=== PATIENT | male | born 1965 | race Caucasian/White ===

== ENCOUNTER 2023-05-04 06:14 | Day surgery (SDC) | payer OTHER ==
[2023-04-27 11:02] VITALS: BMI 22.7
[2023-05-04] MEDS ORDERED: LIDOCAINE HCL/PF 2% SDV 5ML VIAL ONE (07:07)
[2023-05-04] MEDS ORDERED: PROPOFOL 80 ML ONE (07:07)
[2023-05-04] MEDS ORDERED: MIDAZOLAM HCL 2 MG/2 ML SINGLE DOSE VIAL ONE (07:08)
[2023-05-04] MEDS ORDERED: BUPIVACAINE HCL/PF 0.5% (5MG/ML) 10 ML VIAL ONE (07:21)
[2023-05-04] MEDS ORDERED: ceFAZolin SODIUM 1 GM VIAL ONE (08:03)
[2023-05-04] MEDS ORDERED: TRANEXAMIC ACID 1000 MG/10 ML VIAL ONE (08:35)
[2023-05-04] MEDS ORDERED: PROPOFOL 20 ML ONE ×2 (10:15→10:16)
[2023-05-04] MEDS ORDERED: ONDANSETRON 4 MG/2 ML VIAL ONE (10:16)
[2023-05-04] MEDS ORDERED: KETOROLAC TROMETHAMINE 30 MG/1 ML VIAL ONE (10:16)
[2023-05-04] MEDS ORDERED: PROPOFOL 40 ML ONE (10:48)
[2023-05-04] MEDS ORDERED: ONDANSETRON 4 MG/2 ML VIAL IVPUSH PRN (12:05)
[2023-05-04] MEDS ORDERED: ACETAMINOPHEN 1000 MG/100 ML BAG IVPB ONE (12:05)
[2023-05-04] MEDS ORDERED: oxyCODONE HCL 5 MG TABLET PO PRN ×2 (12:05)
[2023-05-04] MEDS ORDERED: PROMETHAZINE HCL 25 MG/1 ML VIAL IVPB PRN (12:05)
[2023-05-04] MEDS ORDERED: FENTANYL CITRATE/PF 50 MCG/ML VIAL ONE (12:13)
[2023-05-04] MEDS ORDERED: LACTATED RINGERS SOLUTION 1,000 ML IV SCH (12:15)
[2023-05-04 12:42] VITALS: TEMP 97.3
[2023-05-04 15:28] VITALS: BP 121/77; PULSE 59; RESP 18
== END 2023-05-04 13:55 | disposition home or self-care (01) ==
LOC: FASU 06:14
PROVIDERS: ATTEND Orthopaedic Surgery Sports Medicine
PROC: 0RNK4ZZ Release Left Shoulder Joint, Percutaneous Endoscopic Approach (ICD-10-PCS; 2023-05-04)
PROC: 0RQK4ZZ Repair Left Shoulder Joint, Percutaneous Endoscopic Approach (ICD-10-PCS; 2023-05-04)
PROC: 0RBK4ZZ Excision of Left Shoulder Joint, Percutaneous Endoscopic Approach (ICD-10-PCS; principal; 2023-05-04 08:28)
DX: M25.312 Other instability, left shoulder (principal); S42.293A Other displaced fracture of upper end of unspecified humerus, initial encounter for closed fracture; S43.432A Superior glenoid labrum lesion of left shoulder, initial encounter; X58.XXXA Exposure to other specified factors, initial encounter; Y93.9 Activity, unspecified; Y92.9 Unspecified place or not applicable; M75.52 Bursitis of left shoulder
CPT/HCPCS: 94760; C1713